=== PATIENT | male | born 1970 | race Native Hawaiian/Other Pacific Islander ===

== ENCOUNTER 2018-12-06 04:27 | Emergency (ER) | payer OTHER ==
[~2018-12-06] VITALS: Ht 170.2 cm; Wt 106.6 kg
[~2018-12-06 04:27] MED LIST: IBUPROFEN200 M1 PO
[2018-12-06 04:30] VITALS: TEMP 98.1
[2018-12-06 04:45] LABS: PLATELET COUNT 185 K/uL (142-355)
[2018-12-06 04:56] LABS: POTASSIUM 3.9 mmol/L (3.6-5.2); SODIUM 139 mmol/L (136-145)
[2018-12-06 07:36] VITALS: BP 125/81
== END 2018-12-06 07:26 | disposition home or self-care (01) ==
LOC: ED 04:27
PROVIDERS: Emergency Medicine
DX: S20.212A Contusion of left front wall of thorax, initial encounter (principal); S20.211A Contusion of right front wall of thorax, initial encounter; Y04.2XXA Assault by strike against or bumped into by another person, initial encounter; Y35.811A Legal intervention involving manhandling, law enforcement official injured, initial encounter
CPT/HCPCS: 36415; 80053; 84484; 85027; 93005; 96360; 96374; 96375; 99284; J1885; J2270; J2405; Q9963